=== PATIENT | male | born 1965 | race Caucasian/White ===

== ENCOUNTER 2018-01-06 12:02 | Emergency (ER) | payer OTHER ==
[2018-01-06 13:05] VITALS: BP 123/85
--- NOTE | 2018-01-06 13:40 | UC ---
Abdominal Pain Male HPI - HPI Summary HPI Summary: Starting yesterday he had suprapubic burning that would cause him to go urinate but not much would come out. There was no penile burning or symptoms. No testicular symptoms. No GI symptoms except for blood in stool about one month ago. he is monogamous. No fever, vomiting, flank pain. - History of Current Complaint Chief Complaint: UCGU Stated Complaint: URINARY COMPLAINT Time Seen by Provider: 01/06/18 13:01 Hx Obtained From: Patient Onset/Duration: Gradual Onset, Resolved - He says it is much better and better now. Timing: Constant Severity Initially: Moderate Severity Currently: Mild Pain Intensity: 1 Location: Suprapubic Character: Burning Aggravating Factor(s): Nothing Alleviating Factor(s): Spontaneous Resolution Associated Signs And Symptoms: Positive: Negative - Allergies/Home Medications Allergies/Adverse Reactions: Allergies Allergy/AdvReac Type Severity Reaction Status Date / Time No Known Allergies Allergy Verified 01/06/18 12:59 Home Medications: Home Medications traZODone TAB* [Desyrel TAB*] 50 mg PO BEDTIME 01/06/18 [History Confirmed 01/06] PMH/Surg Hx/FS Hx/Imm Hx Previously Healthy: No - UTI 5 years ago. - Surgical History Surgical History: Yes Surgery Procedure, Year, and Place: Neck, Wrist, Hernia, Lipoma - Family History Known Family History: Positive: Other - No history. - Social History Occupation: Employed Full-time Alcohol Use: Occasionally Substance Use Type: None Smoking Status (MU): Never Smoked Tobacco - Immunization History Most Recent Influenza Vaccination: Not the Season Review of Systems Gastrointestinal: Abdominal Pain All Other Systems Reviewed And Are Negative: Yes Physical Exam Triage Information Reviewed: Yes Appearance: Well-Appearing, No Pain Distress, Well-Nourished Vital Signs: Initial Vital Signs Temp 97.1 F 01/06/18 13:00 Pulse 74 01/06/18 13:00 Resp 18 01/06/18 13:00 BP 123/85 01/06/18 13:00 Pulse Ox 100 01/06/18 13:00 Vital Signs Reviewed: Yes Eyes: Positive: Conjunctiva Clear. Negative: Conjunctiva Inflamed ENT: Positive: Normal ENT inspection Neck: Negative: Nuchal Rigidity Respiratory: Negative: Respiratory distress Cardiovascular: Positive: Brisk Capillary Refill Abdomen Description: Positive: Nontender, No Organomegaly, Soft. Negative: CVA Tenderness (R), CVA Tenderness (L), Distended, Guarding Musculoskeletal: Positive: Strength Intact, ROM Intact, No Edema Neurological: Positive: Muscle Tone Normal. Negative: Alert, Fatigued Skin: Negative: rashes Abd Pain Male Course/Dx - Course Course Of Treatment: suprapubic symptoms that are essentially resolved without any other worrisome features and a ua that is clean. We will send urine for culture for completeness sake. He will return for any worsening. No hematuria, dark urine, burning of the penis or any other symptoms of the penis/testicles. - Differential Dx/Clinical Impression Provider Diagnoses: suprapubic abd pain. Discharge - Sign-Out/Discharge Documenting (check all that apply): Discharge - Discharge Plan Condition: Good Disposition: HOME Patient Education Materials: Abdominal Pain (ED) Referrals: Hever Toussaint MD [Primary Care Provider] - If Needed - Billing Disposition and Condition Condition: GOOD Disposition: HOME
== END 2018-01-06 13:37 | disposition home or self-care (01) ==
LOC: UCCORT 12:02
DX: R10.30 Lower abdominal pain, unspecified (principal)
CPT/HCPCS: 81003; 87086; 99211; G0463